=== PATIENT | female | born 1955 | race Caucasian/White ===

== ENCOUNTER → 2017-06-03 | Outpatient (CLI) | payer BC ==
--- NOTE | 2017-06-04 10:47 | ECHOF ---
Referral Reason:R07.89 Other Chest Pain MEASUREMENTS -------- HEIGHT: 152.4 cm WEIGHT: 53.1 kg BP: 126/74 RVIDd: 2.8 cm (< 3.3) IVSd: 1.0 cm (0.6 - 1.1) LVIDd: 4.3 cm (3.9 - 5.3) LVPWd: 0.9 cm (0.6 - 1.1) IVSs: 1.2 cm LVIDs: 2.8 cm LVPWs: 1.5 cm LA Diam: 2.8 cm (2.7 - 3.8) LAESV Index (A-L): 21.78 ml/m Ao Diam: 2.4 cm (2.0 - 3.7) AV Cusp: 2.0 cm (1.5 - 2.6) MV EXCURSION: 16.399 mm (> 18.000) MV EF SLOPE: 123 mm/s (70 - 150) EPSS: 0.3 cm MV E Tobi: 1.13 m/s MV DecT: 276 ms MV A Tobi: 0.65 m/s MV E/A Ratio: 1.75 RAP: 5.00 mmHg RVSP: 23.88 mmHg FINDINGS -------- Sinus rhythm. This was a technically good study. The left ventricular size is normal. Left ventricular wall thickness is normal. Overall left vent ricular systolic function is normal with, an EF between 60 - 65 %. The right ventricle is normal in size. Normal LA size by volume 22+/-6 ml/m2. The right atrium is normal in size. The aortic valve is trileaflet and appears structurally normal. The mitral valve is normal. Mild tricuspid regurgitation present. Right ventricular systolic pressure is normal at < 35 mmHg. The pulmonic valve was not well visualized. The aortic root size is normal. Normal inferior vena cava with normal inspiratory collapse consistent with estimated right atrial pre ssure of 5 mmHg. There is no pericardial effusion. CONCLUSIONS -------- 1. Sinus rhythm. 2. This was a technically good study. 3. The left ventricular size is normal. 4. Left ventricular wall thickness is normal. 5. Overall left ventricular systolic function is normal with, an EF between 60 - 65 %. 6. The right ventricle is normal in size. 7. Normal LA size by volume 22+/-6 ml/m2. 8. The right atrium is normal in size. 9. The aortic valve is trileaflet and appears structurally normal. 10. The mitral valve is normal. 11. Mild tricuspid regurgitation present. 12. Right ventricular systolic pressure is normal at < 35 mmHg. 13. The pulmonic valve was not well visualized. 14. The aortic root size is normal. 15. Normal inferior vena cava with normal inspiratory collapse consistent with estimated right atrial pressure of 5 mmHg. 16. There is no pericardial effusion. [employer]PERVISOR: Cindy May RDCS
--- NOTE | 2017-06-04 11:35 | EST ---
EXERCISE STRESS AGE: 61 SEX: F HT: 60" WT: 117 PROTOCOL: Stress Test STAGE: 4 DURATION OF EXERCISE: 10:00 HEART RATE REST: 65 BLOOD PRESSURE REST: 126/79 MAXIMUM HEART RATE ACHIEVED: 142. MAXIMUM BLOOD PRESSURE: 179/70 85% MPHR: 136 100% MPHR: 160 METS: 11.7 INDICATIONS: Chest pain, preoperative. CLINICAL INFORMATION: Baseline EKG revealed normal sinus rhythm without significant ST-T changes. Patient walked for 10 minutes on a standard Artie protocol. Achieved a maximal heart rate of 142 beats per minute which is more than 85% of predicted maximal. She developed fatigue and shortness of breath but did not have angina. Peak blood pressure was 179/70. EKG did not reveal any ST-segment changes to indicate ischemia. There was no angina or arrhythmia. By EKG criteria, this is a negative stress test with good exercise capacity. ELYSE / KATIEN: [id number] /
== END ==
LOC: RADNMMAIN 11:06
PROVIDERS: ATTEND Internal Medicine
DX: R07.89 Other chest pain (principal)
CPT/HCPCS: 93017; 93306

== ENCOUNTER → 2023-06-22 | Outpatient (CLI) | payer BC ==
--- NOTE | 2023-06-22 12:53 | BD ---
EXAMINATION TYPE: Axial Bone Density DATE OF EXAM: 06/22/2023 CLINICAL HISTORY: 67 years old Female. ICD-10 CODE: N95.8 MENOPAUSAL AND PERIMENOPAUSAL DISORDER Height: 59.5 Weight: 127.4 FRAX RISK QUESTIONS: Alcohol (3 or more units per day): no Family History (Parent hip fracture): no Glucocorticoids (More than 3mos): no History of Fracture in Adulthood: no Secondary Osteoporosis: 1. Type 1 Diabetes: no 2. Hyperthyroidism: no 3. Menopause before 45: no 4. Malnutrition: no 5. Chronic liver disease: no Rheumatoid Arthritis: no Current Tobacco Use: no RISK FACTORS HISTORY OF: Hip Fracture (Right/Left): no Spine Fracture: no History of Wrist Fracture: no Surgery to Spine/Hip(right/left)/Wrist (right/left): no MEDICATIONS: Thyroid Medications: no Osteoporosis Medications: no EXAM MEASUREMENTS: Bone mineral densitometry was performed using the [employer] System. Bone mineral density as measured about the Lumbar spine is: ----- L1-L4(G/cm2): 1.125 T Score Values are as follows: ----- L1: -0.1 ----- L2: -0.9 ----- L3: -0.4 ----- L4: -0.5 ----- L1-L4: -0.5 Z Score Values are as follows: ----- L1: 1.7 ----- L2: 1.0 ----- L3: 1.4 ----- L4: 1.3 ----- L1-L4: 1.4 Baseline Study Bone mineral density about the R hip (g/cm2): 0.930 Bone mineral density about the L hip (g/cm2): 0.872 T Score values are as follows: -----R Neck: -0.3 -----L Neck: -0.3 -----R Total: -0.6 -----L Total: -1.1 Z Score values are as follows: -----R Neck: 1.3 -----L Neck: 1.4 -----R Total: 0.8 -----L Total: 0.6 Baseline Study FRAX%s: The graph provided illustrates a 7.4% chance for a major osteoporotic fx and a 0.4% chance fo r the hips probability for fx in 10 years time. IMPRESSION: Osteopenia (T Score between -2.5 and -1). There is slightly increased risk of fracture and the patient may be considered for treatment. Re-Screen 2-5 years. NOTE: T-SCORE=SD OF THE YOUNG ADULT MEAN.
--- NOTE | 2023-06-23 15:22 | MM ---
Reason for Exam: Screening (asymptomatic). Last mammogram was performed 18 year(s) and 8 month(s) ago. Patient History: Menarche at age 15. First Full-Term at age 22. Postmenopausal. Patient has history of breast feeding. Mother had breast cancer, age 40. Risk Values: Riddhi 5 year model risk: 2.9%. NCI Lifetime model risk: 10.3%. Prior Study Comparison: No prior studies available for comparison. Tissue Density: The breasts are heterogeneously dense, which may obscure small masses. Findings: Analyzed By CAD. There is no suspicious group of microcalcifications or new suspicious mass in either breast. Overall Assessment: Benign, BI-RAD 2 Management: Screening Mammogram of both breasts in 1 year. . Patient should continue monthly self-breast exams. A clinical breast exam by your physician is recommended on an annual basis. This exam should not preclude additional follow-up of suspicious palpable abnormalities. Note on Riddhi scores and lifetime risk: 1. A Riddhi score greater than 3% is considered moderate risk. If this is the case, consider specialist referral to assess eligibility for a risk reducing agent. 2. If overall lifetime risk for the development of breast cancer is 20% or higher, the patient may qualify for future screening with alternating mammogram and breast MRI. Electronically signed and approved by: Daniel Nascimento M.D. Radiologis
== END | disposition home or self-care (01) ==
LOC: RADBDWWP 09:14
PROVIDERS: ATTEND Internal Medicine
DX: Z12.31 Encounter for screening mammogram for malignant neoplasm of breast (principal); M85.88 Other specified disorders of bone density and structure, other site; N95.8 Other specified menopausal and perimenopausal disorders; Z78.0 Asymptomatic menopausal state; Z80.3 Family history of malignant neoplasm of breast
CPT/HCPCS: 77063; 77067; 77080

== ENCOUNTER → 2024-04-11 | Outpatient (CLI) | payer MEDICARE, OTHER ==
--- NOTE | 2024-04-11 16:06 | US ---
EXAMINATION TYPE: US transvaginal DATE OF EXAM: 04/11/2024 COMPARISON: NONE CLINICAL INDICATION: Female, 68 years old with history of N93.9 ABNORMAL UTERINE AND VAGINAL BLEEDING , UNSPE; Pt states one episode of postmenopausal vaginal bleeding x 1 day TECHNIQUE: Transvaginal (TV). Transvaginal grayscale sonographic images of the pelvis were acquired. Doppler imaging: Not performed. FINDINGS: EXAM MEASUREMENTS: Uterus: 7.3 x 3.0 x 3.2 cm Endometrial Stripe: 0.4 cm Right Ovary: Not visualized due to bowel gas. Left Ovary: Not visualized due to bowel gas. 1. Uterus: Anteverted wnl 2. Endometrium: Ill-defined, however appeared wnl 3. Right Ovary: Obscured by overlying bowel gas 4. Left Ovary: Obscured by overlying bowel gas 5. Bilateral Adnexa: wnl 6. Posterior cul-de-sac: wnl Unremarkable anteverted uterus without focal lesion. Endometrium is ill-defined but normal thickness. Both ovaries are obscured by overlying bowel gas. No free fluid. IMPRESSION: No ultrasound evidence for acute pelvic process. Ill-defined appearance of the endometriu m but demonstrates normal thickness for postmenopausal status. [facility], , 04/11/2024 4:04 PM
== END | disposition home or self-care (01) ==
LOC: RADUSWWP 15:22
PROVIDERS: ATTEND Internal Medicine
DX: N95.0 Postmenopausal bleeding (principal)
CPT/HCPCS: 76830